=== PATIENT | male | born 1995 | race Caucasian/White ===

== ENCOUNTER 2018-05-29 21:36 | Inpatient (IN) | payer OTHER ==
[~2018-05-29] VITALS: Ht 182.9 cm; Wt 74.9 kg
[~2018-05-29 21:36] MED LIST: ADV500INH INH; ALBU17IN INH; Escitalopram Oxalate PO; LEXA1TAB PO; MELA3CAP2 PO; NORCOTAB PO; PROZ20CA11 PO; TRAZO50TA PO; ZYRT10CA PO
[2018-05-29 22:36] LABS: HEMATOCRIT 44.8 % (42.0-52.0); HEMOGLOBIN 15.4 g/dl (13.5-17.5); MEAN CORPUSCULAR HEMOGLOBIN 28.9 pg (27.0-33.0); MEAN CORPUSCULAR HGB CONC 34.4 g/dl (32.0-36.5); MEAN CORPUSCULAR VOLUME 84.1 fl (80.0-96.0); PLATELET COUNT, AUTOMATED 268 10^3/uL (150-450); RED BLOOD COUNT 5.33 10^6/uL (4.30-6.10); WHITE BLOOD COUNT 10.7 10^3/uL (4.0-10.0)
[2018-05-29 22:55] LABS: AMPHETAMINES LEVEL URINE NEGATIVE (NEGATIVE); BARBITURATES URINE NEGATIVE (NEGATIVE); BENZODIAZEPINES URINE NEGATIVE (NEGATIVE); CANNABINOIDS URINE NEGATIVE (NEGATIVE); COCAINE METABOLITE URINE NEGATIVE (NEGATIVE); METHADONE URINE NEGATIVE (NEGATIVE); OPIATES URINE NEGATIVE (NEGATIVE); PHENCYCLIDINE URINE NEGATIVE (NEGATIVE)
[2018-05-29 23:07] LABS: ACETAMINOPHEN LEVEL < 2.0 UG/ML (10.0-30.0); ALBUMIN 4.4 GM/DL (3.2-5.2); ALT/SGPT 22 U/L (12-78); BILIRUBIN,DIRECT 0.2 MG/DL (0.0-0.2); BILIRUBIN,TOTAL 0.7 MG/DL (0.2-1.0); BLOOD UREA NITROGEN 11 MG/DL (7-18); CALCIUM LEVEL 9.1 MG/DL (8.5-10.1); CARBON DIOXIDE LEVEL 23 MEQ/L (21-32); CHLORIDE LEVEL 107 MEQ/L (98-107); CREATININE FOR GFR 1.14 MG/DL (0.70-1.30); ETHYL ALCOHOL (ETHANOL) < 0.003 % (0.000-0.010); GLOMERULAR FILTRATION RATE > 60.0 (>60); GLUCOSE, FASTING 91 MG/DL (70-100); POTASSIUM SERUM 3.9 MEQ/L (3.5-5.1); SALICYLATE LEVEL < 1.7 MG/DL (5.0-30.0); SODIUM LEVEL 140 MEQ/L (136-145); TOTAL PROTEIN 8.1 GM/DL (6.4-8.2)
[2018-05-29] MEDS ORDERED: VENTAER INH (23:43)
[2018-05-29] MEDS ORDERED: MOM 30ML SUSPENSION UDC PO PRN (23:45)
[2018-05-29] MEDS ORDERED: MAALOX 30 ML SUSP *UDC PO PRN (23:45)
[2018-05-29] MEDS ORDERED: ACETAMINOPHEN TAB 650MG DOSE (2X325MG) PO PRN (23:45)
[2018-05-30 00:50] VITALS: BP 136/83
[2018-05-30 06:39] VITALS: BP 113/74
[2018-05-30 18:00] VITALS: BP 132/80
[2018-05-30] MEDS ORDERED: ALBUTEROL 90 MCG/ACT 8GM HFA INHALER INH PRN (21:30)
[2018-05-31 06:20] VITALS: BP 135/63
[2018-05-31] MEDS: FLUoxetine 10 MG CAP PO SCH (09:25)
--- NOTE | 2018-05-31 16:01 | MHHPE ---
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 He is on legal status 9.39. CHIEF COMPLAINT: "I did not know that the [facility] doesn't have the policy to carry a loaded gun, I was not suicidal." HISTORY OF PRESENT ILLNESS: The patient has a history of major depressive disorder, was treated 3 years ago at inpatient mental health unit ([facility]) for depression. He reportedly was on Prozac, which was discontinued after a year, however he was going to therapy and he has been noncompliant with it. He was in the [employer] at [employer], was discharged honorably about a year ago, went home to [place]. However, yesterday he drove back from [place] to [place] to see his ex-boyfriend. He came to know that he was cheating and lying on him. He held an unloaded gun against his head and kept it down. His friend came to know, called the police, and police brought him to the hospital. According to the patient, he never intended to kill himself, he is not depressed, but he wanted to know how he felt just holding a gun against his head. Denies any vegetative signs of depression. Has no history of azucena or any anxiety symptoms. Denies any current stress other than discord with his ex-boyfriend. Patient currently is on no medications. PAST PSYCHIATRIC HISTORY: One previous psychiatric hospitalization 3 years back, was on Prozac. SUICIDAL HISTORY: Denies suicide attempt in the past. DRUG AND ALCOHOL HISTORY: Patient denies. MEDICAL HISTORY: Denies medical issues. FAMILY HISTORY: Denies family history of mental illness. PERSONAL HISTORY: He was born and raised in [place] by both parents. He has three brothers and one sister. His relationship with them is good. He has completed high school graduation and 3 1/2 years of service in the . He was deployed in [place]. No history of any posttraumatic stress disorder (PTSD). No history of any abuses. MENTAL STATUS EXAMINATION: Casually dressed in hospital clothes with good personal hygiene. Made good eye contact. Is cooperative. Psychomotor activity is normal. Speech: Rate, rhythm, volume are good. Mood is euthymic. Affect is appropriate for the mood. Thought process: Linear and goal-directed, spontaneous. Thought content: Denied any suicidal or homicidal ideas, denied delusions. Cognition: Alert, oriented to time, place, and person. Insight and judgment are fair to poor. Memory: Immediate, remote, recent are good. VITAL SIGNS: Temperature 98.5, pulse 76, respiratory rate 16, blood pressure 113/74. LABORATORY DATA: CBC, CMP within normal limits. Toxicology was negative. REVIEW OF SYSTEMS: CONSTITUTIONAL: Denied night sweats, fever, or weight loss. HEENT: Denied sore throat, epistaxis, or hearing loss. RESPIRATORY SYSTEM (RS): Denied cough or shortness of breath. CARDIOVASCULAR SYSTEM (CVS): Denied chest pain, palpitation. PA denied abdominal pain or bleeding per rectum (NM). GENITOURINARY: Denied dysuria, hematuria, frequency. CENTRAL NERVOUS SYSTEM (CARE DIRECTOR RN): Denied dizziness, numbness, tingling, gait is normal. DIAGNOSES : Adjustment disorder with depressed mood. Rule out major depressive disorder, recurrent, mild. 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 Denies any vegetative signs of depression. Denies having any suicidal thoughts. I would like to admit him to inpatient mental health unit ([facility]). He will be seen by physician assistant plant control operator (PA) for medical needs. Patient will followup with case management and social worker school. Patient will attend individual, group, and milieu therapy. Medications: The patient has stopped taking his Prozac for the last 2 years and has not been symptomatic. Probably after discharge he needs psychotherapy. He will be observed with 15-minute checks and suicide precaution. Estimated length of stay 3-4 days. Get more information from his family and other collaterals.
[2018-05-31 18:00] VITALS: BP 123/84
[2018-05-31] MEDS: traZODone 50 MG TAB PO PRN (22:38)
[2018-06-01 06:48] VITALS: BP 136/63
--- NOTE | 2018-06-01 07:33 | MHIPN ---
DATE: 05/31/2018 SUBJECTIVE: "I am feeling fine. I was upset about my friend's behavior." OBJECTIVE: This is a 22-year-old male an ex-, who came from [place] was upset with is boyfriend who, according to the patient, was cheating on him and lying. He held an empty gun against his head and told the police that he wanted to see how he could feel with a gun to his head. 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 Has a supportive family. He seems to be impulsive a times. He was admitted about 3 years ago to [facility] for depression and has been noncompliant with medications. MENTAL STATUS EXAMINATION: Casually dressed. Made good eye contact. Cooperative. Psychomotor activity is normal. Speech rate and volume are good. Thought process linear and goal directed. Mood is mildly depressed. Affect is appropriate for the mood. Thought content: Denied any suicidal or homicidal ideas. Denied any delusions. Denied any auditory hallucinations. He is alert, oriented to time, place and person. Memory is intact. VITAL SIGNS: Temperature 98.4, pulse is 62, respiratory rate is 14, blood pressure 135/63. LABORATORY: CMP within normal limits. Toxicology was negative. DIAGNOSIS: Unspecified depressive disorder. PLAN: The plan is to continue with trazodone 50 mg at night as needed and add fluoxetine 10 mg in the a.m. titrate the dose. Continuity of care discussed with nursing staff and social work. JOSSELIN
[2018-06-01] MEDS: FLUoxetine 10 MG CAP PO SCH (09:38)
--- NOTE | 2018-06-01 11:24 | HPE ---
DATE OF ADMISSION: 05/29/2018 HISTORY OF PRESENT ILLNESS: Please refer to the psychiatric history and evaluation for further details on this admission. This examination and history is intended for medical issues which may need treatment, followup or consultation on this 22-year-old male. PRIMARY CARE PROVIDER: SOCIAL HISTORY: He lives in [place]. He is single. 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 He does not smoke cigarettes. Does not drink alcohol. Does not use recreational drug use. PAST MEDICAL HISTORY: Depression. Anxiety. Insomnia. Asthma. PAST SURGICAL HISTORY: None. ALLERGIES: No known drug allergies. FAMILY HISTORY: Mother and father are alive and well. LABORATORY STUDIES: WBC 10.7, hemoglobin 15.4, hematocrit 44.8, platelets 268. CMP was normal. Urine toxicology was negative. REVIEW OF SYSTEMS: 10-systems review was done and was negative. HOME MEDICATIONS: - Ventolin two puffs by mouth every 4 hours as needed for shortness of breath. - cetirizine 10 mg by mouth daily as needed for allergies. REVIEW OF SYSTEMS: 10-systems review was done and was unremarkable. PHYSICAL EXAMINATION: 22-year-old cooperative male in no acute distress. Vital signs: Height 72 inches, weight 75.5 kg, body surface index (BMI) 22.6. Blood pressure 136/83, pulse 93, respiratory rate 15, temperature 98.9, oxygen saturation 96% on room air. The patient is alert and oriented times three. Pupils equal and reactive to light. Extraocular movements intact. Cornea and sclera clear. Conjunctiva normal. No facial asymmetry. Pharynx, tongue, and gums pink and moist. Tongue is midline. Neck is supple, without lymphadenopathy. No thyromegaly. No goiter. Carotids 2+ without bruit. Chest clear to auscultation, without wheeze or retraction. Heart is regular. Abdomen benign. Bowel sounds positive. /Rectal: Not done. Extremities show equal strength. Full range of motion. no cyanosis, clubbing or edema. Peripheral pulses equal and palpable bilaterally. Skin is warm and dry. IMPRESSION AND PLAN: 1. Psychiatric: Plan per psychiatry. 2. History of asthma, clinically stable. 3. No acute medical issues.
--- NOTE | 2018-06-01 15:03 | MHIPN ---
DATE: 06/01/2018 SUBJECTIVE: "I'm feeling better, I don't have any depressed mood, no side effect from the medication." OBJECTIVE: He is a 22-year-old male, ex- person, who came from [place] to see his boyfriend. He was upset because he found out that he was cheating on him and was lying. He held an empty gun against his head and told the police that he wanted to see how it would feel with a gun on his head. 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 He has supportive family. He seems to be impulsive at times. He was admitted about three years ago to [facility] for depression. He has been noncompliant with medication. MENTAL STATUS EXAMINATION: Casually dressed, made good eye contact, cooperative. Psychomotor activity is normal. Speech: Rate, rhythm and volume are good. Thought process: Linear, goal-directed. Mood is mildly depressed. Affect is appropriate for the mood. Thought content: Denied any suicidal or homicidal ideas. Denied delusions. He is alert and oriented to time, place, and person. Memory is intact. VITAL SIGNS: Temperature is 97.2, pulse is 60, respiratory rate is 16, blood pressure is 136/63. LABORATORY DATA: CBC, CMP within normal limits. TSH is normal. Toxicology was negative. DIAGNOSES: 1. Unspecified depressive disorder. 2. Rule out adjustment disorder with depressed mood. PLAN: Continue current medications. Continue individual and group therapy.
[2018-06-01 18:00] VITALS: BP 136/68
[2018-06-01] MEDS: traZODone 50 MG TAB PO PRN (21:14)
[2018-06-02 07:00] VITALS: BP 128/62
[2018-06-02] MEDS: FLUoxetine 10 MG CAP PO SCH (09:46)
--- NOTE | 2018-06-02 13:14 | MHIPNPDOC ---
[facility] Progress Note Progress Note DATE OF SERVICE: 06/02/18 HISTORY: As per ED report: "CHIEF COMPLAINT: "I did not know that the [facility] doesn't have the policy to carry a loaded gun, I was not suicidal." HISTORY OF PRESENT ILLNESS: As per ED report: " The patient has a history of major depressive disorder, was treated 3 years ago at inpatient mental health unit ([facility]) for depression. He reportedly was on Prozac, which was discontinued after a year, however he was going to therapy and he has been noncompliant with it. He was in the [employer] at [place], was discharged honorably about a year ago, went home to [place]. However, yesterday he drove back from [place] to [place] to see his ex-boyfriend. He came to know that he was cheating and lying on him. He held an unloaded gun against his head and kept it down. His friend came to know, called the police, and police brought him to the hospital. According to the patient, he never intended to kill himself, he is not depressed, but he wanted to know how he felt just holding a gun against his head. Denies any vegetative signs of depression. Has no history of azucena or any anxiety symptoms. Denies any current stress other than discord with his ex-boyfriend." VITAL SIGNS: See below. NEW TEST RESULTS: CURRENT MEDICATIONS: See below. MENTAL STATUS EXAMINATION: Patient is a 22-year old male, who is alert, cooperative, pleasant. Speech: Is spontaneous and fluent, normal tone, volume, rate and rhythm. Language skills are good. Thought processes including: intact, logical, coherent. Thought content: optimistic about mending his relationship with SO, anxious tho ughts about losing his job if he doesn't get discharged soon. Abstract reasoning, and computation: good. Description of associations: good Description of abnormal or psychotic thoughts: denies. Judgment: fair Insight: fair. Orientation: x 3. Recent and remote memory: intact. Attention span and concentration: good. Language: good. Fund of knowledge: average. Mood: anxious. Affect: anxious/constricted. DIAGNOSES: 1. Unspecified depressive disorder. 2. Rule out adjustment disorder with depressed mood. ASSESSMENT: Patient seems to be having a good response to medications, denies SI/HI. Says in the future he will communicate his feelings to others, he will reach out to get help. He worries bout losing his job with [employer], he wants to go back to [place], he worries that if he looses his job, he won't be able to pay for his home or his car. Patient says he will work things out with his SO, they are willing to go back together. He thinks SO is supportive and he will go back with him to [place]. MANAGEMENT PLAN: Will continue with the same treatment plan TIME SPENT: 20 minutes. Vital Signs Vital Signs Date Time Temp Pulse Resp B/P (MAP) Pulse Ox O2 Delivery O2 Flow Rate FiO2 06/02/18 07:00 97.4 59 16 128/62 (84) 05/31/18 06:20 Room Air 05/30/18 00:50 96 Current Medications Current Medications Acetaminophen (Tylenol Tab) 650 mg Q6HP PRN PO HEADACHE or DISCOMFORT; Start 05/29/18 at 23:45 Al Hydrox/Mg Hydrox/Simethicone (Mylanta) 30 ml Q4HP PRN PO HEARTBURN/INDIGESTION; Start 05/29/18 at 23:45 Albuterol Sulfate (Proventil, Ventolin Hfa) 2 puff Q4HP PRN INH SHORTNESS OF BREATH; Start 05/30/18 at 21:30 Fluoxetine HCl (PROzac) 10 mg DAILY PO Last administered on 06/02/18 09:46; Start 05/31/18 at 09:00 Home Med (Med Rec Complete!) ASDIRECTED XX ; Start 05/30/18 at 00:30; Stop 05/30/18 at 00:30; Status DC Magnesium Hydroxide (Milk Of Magnesia) 30 ml DAILYPRN PRN PO CONSTIPATION; Start 05/29/18 at 23:45 Trazodone HCl (Desyrel) 50 mg QHSP PRN PO INSOMNIA Last administered on 06/01/18 21:14; Start 05/29/18 at 23:45 Allergies Coded Allergies: No Known Allergies (Unverified , 07/24/15) NAYE LAWSON MD Jun 02, 2018 13:13
[2018-06-02 18:00] VITALS: BP 134/83
[2018-06-02] MEDS: traZODone 50 MG TAB PO PRN (21:33)
[2018-06-03] MEDS: FLUoxetine 10 MG CAP PO SCH (08:22)
[2018-06-03] MEDS ORDERED: VENTAER INH (10:04)
[2018-06-03] MEDS ORDERED: PROZ10CA7 PO (10:04)
[2018-06-03] MEDS ORDERED: TRAZO50TA PO (10:04)
--- NOTE | 2018-06-03 19:07 | MHDSPDOC ---
[facility] Discharge Summary Discharge Summary DATE OF ADMISSION: May 29, 2018 at 23:38 DATE OF DISCHARGE: Jun 03, 2018 at 12:25 DISCHARGE DIAGNOSES: 1. Unspecified depressive disorder 2. R/O Adjustment disorder with depressed mood REASON FOR ADMISSION: As per ED report: "CHIEF COMPLAINT: "I did not know that the [facility] doesn't have the policy to carry a loaded gun, I was not suicidal." HISTORY OF PRESENT ILLNESS: As per ED report: " The patient has a history of major depressive disorder, was treated 3 years ago at inpatient mental health unit ([facility]) for depression. He reportedly was on Prozac, which was discontinued after a year, however he was going to therapy and he has been noncompliant with it. He was in the [employer] at [place], was discharged honorably about a year ago, went home to [place]. However, yesterday he drove back from [place] to [place] to see his ex-boyfriend. He came to know that he was cheating and lying on him. He held an unloaded gun against his head and kept it down. His friend came to know, called the police, and police brought him to the hospital. According to the patient, he never intended to kill himself, he is not depressed, but he wanted to know how he felt just holding a gun against his head. Denies any vegetative signs of depression. Has no history of azucena or any anxiety symptoms. Denies any current stress other than discord with his ex-boyfriend." CONSULTANTS INVOLVED: None TREATMENT AND PROGRESS ON THE UNIT : Patient had a good response to medications and his mood brightenend up when he spoke with his SO and both of them agreed to work on their relationship. He wanted to go back to [place] and get back to work because he was afraid that he could lose his job and his car if he didn't present for work. Patient was not suicidal and he was goal orientated because he was going to drive back with his SO, unfortunately he had to be discharged to the Police because he had pending charges for possession of a weapon (he is not authorized to have a gun in [facility]). HOSPITAL COURSE: As above DISCHARGE ASSESSMENT: Patient was not suicidal, not homicidal and not psychotic upon discharge MENTAL STATUS EXAMINATION ON DISCHARGE: Patient is a 22-year old male, who is alert, cooperative, pleasant. Speech: Is spontaneous and fluent, normal tone, volume, rate and rhythm. Language skills are good. Thought processes including: intact, logical, coherent. Thought content: optimistic about mending his relationship with SO, anxious thoughts about losing his job if he doesn't get discharged soon. Abstract reasoning, and computation: good. Description of associations: good Description of abnormal or psychotic thoughts: denies. Judgment: fair Insight: fair. Orientation: x 3. Recent and remote memory: intact. Attention span and concentration: good. Language: good. Fund of knowledge: average. Mood: anxious. Affect: anxious/constricted. DIAGNOSES: 1. Unspecified depressive disorder. 2. Rule out adjustment disorder with depressed mood. MEDICATIONS ON DISCHARGE: Scheduled Fluoxetine HCl (Prozac) 10 Mg Cap, 10 MG PO DAILY for Depression, #7 Scheduled PRN Albuterol Sulfate (Ventolin Hfa) 108 Mcg/Act Aer, 2 PUFF INH Q4H PRN for SHORTNESS OF BREATH, (Reported) Albuterol Sulfate (Ventolin Hfa) 108 Mcg/Act Aer, 2 PUFF INH Q4HP PRN for SHORTNESS OF BREATH, #1 Cetirizine HCl (Zyrtec Allergy) 10 Mg Cap, 10 MG PO DAILY PRN for ALLERGY SYMPTOMS, (Reported) Trazodone HCl (Trazodone HCl) 50 Mg Tab, 50 MG PO QHSP PRN for INSOMNIA, #7 PLAN/FOLLOWUP ARRANGEMENTS: Patient was discharged to [facility] because he had to go to Court, since he was found to have a weapon that he was not allowed to have in [facility]. * Medical * Medical Follow Up [facility]: Dr. Mahesh Payne * Established With This Provider Yes * Date Jun 30, 2018 * Time 13:00 * Additional information [facility] [place] [address] Follow Up Care Education Label * Mental Health Appt 1 * Mental Health [facility] * Established With This Provider Yes * Therapist BEV CABRERA NP * Date Jun 30, 2018 * Time 10:00 * X 1000 (Mental Health) * Additional information WALK - IN HRS (IF NEEDED) Daily [id number] Mental Health 4th Floor [address] [place] [address] The amount of time spent in the coordination of care for this patient was approximately 30 minutes. Vital Signs/I&Os Vital Signs Date Time Temp Pulse Resp B/P (MAP) Pulse Ox O2 Delivery O2 Flow Rate FiO2 06/02/18 18:00 98.4 89 16 134/83 (100) 96 Room Air Medications Scheduled Fluoxetine HCl (Prozac) 10 Mg Cap, 10 MG PO DAILY for Depression, #7 Scheduled PRN Albuterol Sulfate (Ventolin Hfa) 108 Mcg/Act Aer, 2 PUFF INH Q4H PRN for SHORTNESS OF BREATH, (Reported) Albuterol Sulfate (Ventolin Hfa) 108 Mcg/Act Aer, 2 PUFF INH Q4HP PRN for SHORTNESS OF BREATH, #1 Cetirizine HCl (Zyrtec Allergy) 10 Mg Cap, 10 MG PO DAILY PRN for ALLERGY SYMPTOMS, (Reported) Trazodone HCl (Trazodone HCl) 50 Mg Tab, 50 MG PO QHSP PRN for INSOMNIA, #7 Allergies Coded Allergies: No Known Allergies (Unverified , 07/24/15) NAYE LAWSON MD Jun 03, 2018 19:03
== END 2018-06-03 12:25 | DRG 881 ==
LOC: M ED 21:36 → M ED INP 23:38 → M PSY 05-30 00:50
PROVIDERS: ADMIT Psychiatry & Neurology Psychiatry; ATTEND Psychiatry & Neurology Psychiatry
DX: F32.9 Major depressive disorder, single episode, unspecified (principal); F43.21 Adjustment disorder with depressed mood; Z79.899 Other long term (current) drug therapy; J45.909 Unspecified asthma, uncomplicated; G47.00 Insomnia, unspecified; F41.9 Anxiety disorder, unspecified